=== PATIENT | male | born 1950 | race Caucasian/White ===

== ENCOUNTER 2018-06-09 15:20 | Emergency (ER) | payer OTHER, SELFPAY ==
[2018-06-09 15:49] VITALS: BP 174/94; PULSE 85; RESP 16; TEMP 36.7; O2SAT 100
--- NOTE | 2018-06-09 16:35 | ED.SKABFB ---
HPI - Skin/Abscess/Foreign Bdy General Chief complaint: Skin/Abscess/Foreign Body Stated complaint: INFECTION ON LEFT INDEX FINGER Time Seen by Provider: 06/09/18 16:26 Source: patient Mode of arrival: ambulatory Limitations: no limitations History of Present Illness HPI narrative: Patient is a 68-year-old male sent over from the clinic overall [address] [place] [address] for evaluation of osteomyelitis of his left index finger. Patient states that sometime between 3 and 4 weeks ago he sustained an injury where a piece of wood went up under his fingernail of his left index finger. He states that that has since come out. Since then he has had issues with this finger. [place] been on 10 days of Keflex and 10 days of Augmentin. He states that at some point in the past 10 days he did have purulent material expressed from under his fingernail. Patient states that he went back to his primary doctor within the past 24 hr and had an x-ray which showed osteomyelitis of his fingers so he was sent to the emergency department for further evaluation. He states he has been soaking his finger. States that he is one-day into a new course of 10 days of Keflex. Provided by his primary doctor Related Data Home Medications Medication Instructions Recorded Confirmed cephalexin 750 mg PO BID 06/09/18 06/09/18 lisinopril 10 mg PO DAILY 06/09/18 06/09/18 lovastatin 40 mg PO QPM 06/09/18 06/09/18 metformin 1,000 mg PO BID 06/09/18 06/09/18 Previous Rx's Medication Instructions Recorded sulfamethoxazole-trimethoprim 1 tab PO BID 10 Days #20 tab 06/09/18 Allergies Allergy/AdvReac Type Severity Reaction Status Date / Time No Known Drug Allergies Allergy Verified 06/09/18 15:56 Review of Systems Constitutional Denies fatigue, Denies fever(s) and Denies lethargy Cardiovascular Denies chest pain, Denies palpitations and Denies dyspnea Respiratory Denies dyspnea Musculoskeletal Comments: Left index finger pain and swelling and possible infection Integumentary/Breasts Comments: Swelling to the left distal index finger with white areas Neurologic Comments: Decreased sensation over the left index finger Endocrine Denies fatigue and Denies palpitations COUNTS INCLUDE 234 BEDS AT THE [facility] Medical History High cholesterol (Acute) Hypertension (Acute) Social History Smoking Status: Former smoker Comment: Reviewed patient's past medical history surgical history social history and family history Exam Initial Vital Signs Initial Vital Signs: Vital Signs Temperature 98.1 F 06/09/18 15:49 Pulse Rate 85 06/09/18 15:49 Respiratory Rate 16 06/09/18 15:49 Blood Pressure 174/94 H 06/09/18 15:49 Pulse Oximetry 100 06/09/18 15:49 Const General: cooperative, healthy appearing, comfortable, well developed, well groomed and No acute distress Orientation: alert, awake and oriented x3 HENMT Head: normal to inspection and normocephalic Cardio Pulses: radial pulses present on the left Skin Other: Patient with change in skin color from the PIP joint distal of the left index finger. Has some redness over this area however much of the area is white and swollen. No active drainage. He does have an area on the pad of his index finger towards the distal end of his finger consistent with a cold abscess that has been drained Neuro Other: Patient was somewhat decreased sensation to light touch over the left index finger however does express some pain with this area is palpated. Extrem Other: Patient with swelling of the index finger from the PIP joint distal. Has minimal changes to the finger from the PIP joint proximal. Does have circumferential swelling from the PIP distal. Has limited flexion and extension secondary to the swelling and pain. Course Orders Ordered: ED Orders 06/09/18 16:34 Basic Metabolic Panel Stat Blood Culture Stat C-Reactive Protein Quant Stat Complete Blood Count AUTO DIFF Stat Erythrocyte Sedimentation Rate Stat Lactate (Lactic Acid) Stat Vital Signs - 8 hr 06/09/18 15:49 Temperature 98.1 F Pulse Rate 85 Respiratory Rate 16 Blood Pressure 174/94 H Pulse Oximetry 100 MDM - Skin/Abscess/Foreign Bdy Lab Data Attestation: I reviewed the patient's lab results. Result diagrams: 06/09/18 16:45 06/09/18 16:45 Lab Results 06/09/18 06/09/18 06/09/18 Range/Units 16:45 16:45 16:45 WBC 4.1 L (4.5-11.0) X10^3/uL RBC 3.86 L (4.5-5.9) X10^6/uL Hgb 11.9 L (13.5-17.5) g/dL Hct 34.4 L (41-53) % MCV 89.2 (80-100) fL MCH 30.9 (26-34) PG MCHC 34.7 (30-36) % RDW 14.7 (11.6-14.8) % Plt Count 207 (150-400) X10^3/uL Neut % (Auto) 62.9 (50-75) % Lymph % (Auto) 21.2 L (25-40) % Finney % (Auto) 11.6 (3-14) % Eos % (Auto) 3.3 (2-4) % Baso % (Auto) 1.0 (0-2) % Neut # (Auto) 2600 L (5066-3752) /uL ESR 35 H (0-15) MM/HR Sodium 137 (137-145) mmol/L Potassium 4.0 (3.4-5.1) mmol/L Chloride 100 (98-107) mmol/L Carbon Dioxide 27 (22-32) mmol/L BUN 20 (9-20) mg/dL Creatinine 0.70 (0.66-1.25) mg/dL Estimated GFR > 60.0 (>60) mL/min BUN/Creatinine Ratio 28.6 H (6-22) Glucose 375 H (80-110) mg/dL Lactate 0.9 (0.7-2.1) mmol/L Calcium 9.8 (8.4-10.2) mg/dL C-Reactive Protein < 0.5 (<1.0) mg/dL Imaging Data Finger x-ray: Radiologist's impression: PROCEDURE: XR FINGER LT MIN 2V INDICATIONS: Left index finger osteomyelitis TECHNIQUE: AP hand, 2 views of the index finger(s) acquired. COMPARISON: None. FINDINGS: Bones: No fractures or dislocations. The distal phalanx of the index finger shows diminished bone density of the medial aspect of the proximal shaft with marked thinning of the overlying cortex.. Soft tissues: No suspicious soft tissue calcifications. IMPRESSION: Osteomyelitis distal phalanx of the second ray Dictated by: Gerson Zazueta M.D. on 06/09/2018 at 16:57 Approved by: Gerson Zazueta M.D. on 06/09/2018 at 16:59 MDM Narrative Medical decision making narrative: Patient's only inflammatory marker that is elevated as the ESR. He is nontoxic appearing. X-ray is read as osteomyelitis. I did discuss the case with Dr. Higginbotham with Orthopedics who did not evaluate the patient in the emergency department but did evaluate the x-ray and stated that he did not agree with the diagnosis of osteomyelitis. He recommended placing the patient on another antibiotic and having follow up with his primary doctor and the primary doctor felt that he needed a specialist referral they could place a consult in to see a hand surgeon. I agree that this does not sound unreasonable given the patient's clinical presentation. Patient has been on Keflex and Augmentin. Considered multiple antibiotic choices to include Levaquin to cover Pseudomonas or Bactrim to cover MRSA. The area on his distal finger does look like that there was a potential prior Phalen that has drained which does correspond with the fact that the patient did have a drainage or purulent material several days ago. Will place the patient on Bactrim. He was given return precautions and follow-up instructions. He expressed understanding and agreement with plan. Discharge Plan Departure Patient Disposition: Home, Self-Care Clinical Impression: Finger infection Discharge Date/Time: 06/09/18 19:05 Interventions: ED Discharge Assessment Last Done: 06/09/18 19:05 Instructions: DI for Cellulitis -- Adult Activity Restrictions/Additional Instructions: Recommend that you start the antibiotics that you were given today in the emergency department and stop All other antibiotics. I discussed the case with the orthopedic surgeon today who did not think that you have osteomyelitis which is an infection of your bone. He recommended changing your antibiotics and have you follow-up with your primary care doctor. If your symptoms worsen over the weekend you can return to the emergency department. If not contact her primary doctor on Tuesday to discuss the indications for a referral to see Hand surgery. Prescriptions: New sulfamethoxazole-trimethoprim 800-160 mg tablet 1 tab PO BID 10 Days Qty: 20 RF: 0 No Action lovastatin 40 mg Tablet 40 mg PO QPM RF: 0 lisinopril 10 mg Tablet 10 mg PO DAILY RF: 0 cephalexin 750 mg Capsule 750 mg PO BID RF: 0 metformin 500 mg Tablet Extended Release 24 Hr 1,000 mg PO BID RF: 0
--- NOTE | 2018-06-09 16:43 | DI.RAD.S_ITS ---
PROCEDURE: XR FINGER LT MIN 2V INDICATIONS: Left index finger osteomyelitis TECHNIQUE: AP hand, 2 views of the index finger(s) acquired. COMPARISON: None. FINDINGS: Bones: No fractures or dislocations. The distal phalanx of the index finger shows diminished bone density of the medial aspect of the proximal shaft with marked thinning of the overlying cortex.. Soft tissues: No suspicious soft tissue calcifications. IMPRESSION: Osteomyelitis distal phalanx of the second ray Dictated by: Gerson Zazueta M.D. on 06/09/2018 at 16:57 Approved by: Gerson Zazueta M.D. on 06/09/2018 at 16:59
[2018-06-09 16:56] LABS: Add Manual Diff / Slide Review NO; Eosinophils Percent Auto 3.3 % (2-4); Hematocrit 34.4 % (41-53); Hemoglobin 11.9 g/dL (13.5-17.5); Lymphocytes Percent Auto 21.2 % (25-40); Mean Corpuscular HGB Conc 34.7 % (30-36); Mean Corpuscular Hemoglobin 30.9 PG (26-34); Mean Corpuscular Volume 89.2 fL (80-100); Monocytes Percent Auto 11.6 % (3-14); Neutrophils Absolute Auto 2600 /uL (3000-5900); Neutrophils Percent Auto 62.9 % (50-75); Platelet Count 207 X10^3/uL (150-400); Red Blood Cell Count 3.86 X10^6/uL (4.5-5.9); Red Cell Distribution Width 14.7 % (11.6-14.8); White Blood Cell Count 4.1 X10^3/uL (4.5-11.0)
[2018-06-09 17:14] LABS: Lactate (Lactic Acid) 0.9 mmol/L (0.7-2.1)
[2018-06-09 17:16] LABS: BUN Creatinine Ratio 28.6 (6-22); Blood Urea Nitrogen 20 mg/dL (9-20); Calcium 9.8 mg/dL (8.4-10.2); Carbon Dioxide 27 mmol/L (22-32); Chloride 100 mmol/L (98-107); Estimated Glomerular Filt Rate > 60.0 mL/min (>60); Glucose 375 mg/dL (80-110); HEMOLYSIS < 15 (0-50); Sodium 137 mmol/L (137-145)
[2018-06-09 17:17] LABS: C-Reactive Protein Quant < 0.5 mg/dL (<1.0)
[2018-06-09 17:37] LABS: Erythrocyte Sedimentation Rate 35 MM/HR (0-15)
== END 2018-06-09 19:05 | disposition home or self-care (01) ==
PROVIDERS: Emergency Provider Emergency Medicine; Family Provider Family Medicine; PCP Family Medicine
DX: S60.451A Superficial foreign body of left index finger, initial encounter (principal); L08.9 Local infection of the skin and subcutaneous tissue, unspecified; W45.8XXA Other foreign body or object entering through skin, initial encounter
CPT/HCPCS: 36415; 36591; 73140; 80048; 83605; 85025; 85651; 86140; 87040; 99282; 99284

== ENCOUNTER → 2023-02-23 15:52 | Outpatient (CLI) | payer MEDICARE, SELFPAY ==
--- NOTE | 2023-02-23 15:55 | DI.MRI.S_ITS ---
PROCEDURE: MR PELVIS WO CON INDICATIONS: Pain s/p fall. xray imaging 01/24/23 TECHNIQUE: Noncontrast coronal, sagittal, and axial T1 spin echo and STIR through the bony pelvis. COMPARISON: [facility] ([place]), CR, XR HIP W PEL IF DONE LT 2V, 01/24/2023, 15:56. FINDINGS: Image quality: Images are mildly degraded by patient motion on multiple pulse sequences. Diagnostic information is obtained. Bones: Bone marrow of the pelvic ring, sacrum, and proximal femurs show normal signal throughout. No intraosseous lesions or fractures identified. Degenerative changes are seen in the pubic symphysis, sacroiliac joints, and included lumbar spine. [id number] degenerative changes in the bilateral hips. Tendons: Mild distal gluteus medius and minimus tendinosis. The nearby proximal iliotibial band also appears intact. The iliopsoas tendon appears intact, without adjacent bursal fluid collections or evidence for impingement syndrome. The origin of the hamstring tendon is intact at the ischial tuberosity, as well as the associated sacrotuberous ligament. The straight and reflected heads of the rectus femoris muscle origin appear intact, as well as the conjoint tendon. Soft tissues: There is mild edema adjacent to the pubic symphysis at the adductor longus origins and possibly the obturator internus muscles that is suspicious for muscle strain or low-grade partial tearing. Visualized muscles otherwise demonstrate normal bulk and internal signal. No joint effusions. No free pelvic fluid. Bladder wall thickness is normal. Genitourinary structures and bowel loops appear normal where visualized. Left-sided hydrocele or prominent epididymal cyst. IMPRESSION: 1. No acute osseous contusion or fracture. 2. Mild edema at the origins of the bilateral adductor longus muscles adjacent to the pubic symphysis may indicate low-grade muscle strains. 3. Mild distal gluteus medius and minimus tendinosis. 4. Degenerative changes in the hips, pubic symphysis, sacroiliac joints, and included lumbar spine Approved by: Jose Esteves M.D. on 02/24/2023 at 9:47
--- NOTE | 2023-02-23 15:55 | DI.MRI.S_ITS ---
P a ROCEDURE: MR LUMBAR SPINE WO CON INDICATIONS: Pain s/p fall. xray imaging 01/24/23 TECHNIQUE: Noncontrast sagittal T1 spin echo and T2 fast echo, sagittal STIR, and T2 fast spin echo through the lumbar spine. In cases with scoliosis, additional coronal T2 fast spin echo may be performed. COMPARISON: [facility] ([place]), CR, XR LUMBAR SPINE 2-3V, 01/24/2023, 15:22. FINDINGS: Image quality: Excellent. Alignment and Curvature: Bilateral L5 pars defects with trace anterolisthesis of L5 on S1. Trace degenerative anterolisthesis of L4 on L5. Bone Marrow: Marrow is of normal overall signal. No acute vertebral body compression fractures. Spinal Cord: Conus medullaris terminates at the T12-L1 level. Visualized cord demonstrates normal signal and size. Paraspinous Soft Tissues: No paravertebral masses. T12-L1: Normal appearance. L1-L2: Disc bulge. No canal stenosis or foraminal stenosis. L2-L3: Disc bulge. Mild facet hypertrophy. Mild canal stenosis. Mild right foraminal stenosis. L3-L4: Disc bulge. Facet hypertrophy. Mild canal stenosis. Mild right foraminal stenosis. L4-L5: Anterolisthesis of L4 on L5. Disc bulge. Mild canal stenosis. Left foraminal disc bulge. Severe left foraminal narrowing with left foraminal L4 nerve root impingement. L5-S1: Bilateral L5 pars defects. Trace anterolisthesis of L5 on S1. Posterior disc bulge. No canal stenosis. Mild bilateral foraminal stenosis. IMPRESSION: 1. There are bilateral L5 pars defects. There is trace anterolisthesis of L5 on S1. 2. Multilevel facet arthropathy. 3. Mild canal stenosis at L2-L3, L3-L4, and L4-L5. 4. Severe left foraminal narrowing at L4-L5 with left foraminal L4 nerve root impingement. Dictated by: Lukas Becker M.D. on 02/24/2023 at 8:55 Approved by: Lukas Becker M.D. on 02/24/2023 at 9:00
== END ==
PROVIDERS: Family Provider Family Medicine; PCP Physician Assistant; Referring Provider Physician Assistant; Visit Provider Physician Assistant
DX: M47.816 Spondylosis without myelopathy or radiculopathy, lumbar region (principal); M48.061 Spinal stenosis, lumbar region without neurogenic claudication; M25.552 Pain in left hip; M54.50 Low back pain, unspecified
CPT/HCPCS: 72148; 72195

== ENCOUNTER → 2023-02-24 11:22 | Outpatient (CLI) | payer MEDICARE, SELFPAY ==
[2023-02-24 20:27] LABS: Add Manual Diff / Slide Review NO; Basophils Absolute Auto 0 /uL (0-100); Basophils Percent Auto 0.5 % (0-2); Eosinophils Absolute Auto 200 /uL (0-450); Eosinophils Percent Auto 2.8 % (2-4); Hematocrit 34.2 % (41-53); Hemoglobin 11.7 g/dL (13.5-17.5); Lymphocytes Absolute Auto 900 /uL (1100-4500); Lymphocytes Percent Auto 13.6 % (25-40); Mean Corpuscular HGB Conc 34.2 % (30-36); Mean Corpuscular Hemoglobin 30.2 PG (26-34); Mean Corpuscular Volume 88.3 fL (80-100); Monocytes Absolute Auto 600 /uL (0-900); Monocytes Percent Auto 9.7 % (3-14); Neutrophils Absolute Auto 4900 /uL (1500-7000); Neutrophils Percent Auto 73.4 % (50-75); Platelet Count 306 X10^3/uL (150-400); Red Blood Cell Count 3.88 X10^6/uL (4.5-5.9); Red Cell Distribution Width 12.6 % (11.6-14.8); White Blood Cell Count 6.6 X10^3/uL (4.5-11.0)
[2023-02-24 20:47] LABS: Alanine Aminotransferase 15 IU/L (<50); Albumin Globulin Ratio 1.3 (1.0-2.8); Alkaline Phosphatase 76 U/L (38-126); Aspartate Aminotransferase 21 IU/L (17-59); BUN Creatinine Ratio 22.7 (6-22); Bilirubin Total 0.4 mg/dL (0.2-1.3); Blood Urea Nitrogen 27 mg/dL (9-20); Calcium 9.6 mg/dL (8.4-10.2); Carbon Dioxide 29 mmol/L (22-32); Chloride 99 mmol/L (98-107); Estimated Glomerular Filt Rate > 60 mL/min (>60); Glucose 239 mg/dL (80-110); HEMOLYSIS < 15 (0-50); Potassium 4.8 mmol/L (3.4-5.1); Sodium 135 mmol/L (137-145)
[2023-02-24 20:48] LABS: Cholesterol 254 mg/dL (140-199); HDL Cholesterol 52 mg/dL (40-60); LDL Cholesterol Calculated 135 mg/dL (<100); Triglycerides 336 mg/dL (35-150)
[2023-02-24 20:49] LABS: HEMOLYSIS < 15 (0-50); Iron 100 ug/dL (49-181)
[2023-02-24 21:00] LABS: Percent Iron Saturation 32 % (20-50); Total Iron Binding Capacity 315 ug/dL (261-462); Transferrin 238 mg/dL (206-381)
[2023-02-24 21:15] LABS: Vitamin D 25 Hydroxy (D3) < 12.8 ng/mL (30.0-100.0)
[2023-02-24 21:22] LABS: Ferritin 113 ng/mL (18-464)
[2023-02-24 21:24] LABS: TSH w/ Reflex to FT4 2.28 uIU/mL (0.47-4.68)
[2023-02-24 21:36] LABS: Vitamin B12 737 pg/mL (239-931)
[2023-02-25 21:36] LABS: x Labcorp Estim. Avg Glu (eAG) 232 mg/dL (.); x Labcorp Hemoglobin A1c 9.7 % (4.8-5.6)
== END ==
PROVIDERS: Family Provider Family Medicine; PCP Physician Assistant; Visit Provider Physician Assistant
DX: Z86.2 Personal history of diseases of the blood and blood-forming organs and certain disorders involving the immune mechanism (principal); R41.3 Other amnesia; D64.9 Anemia, unspecified; E11.65 Type 2 diabetes mellitus with hyperglycemia; E78.00 Pure hypercholesterolemia, unspecified
CPT/HCPCS: 80053; 80061; 82306; 82607; 82728; 83036; 83540; 83550; 84443; 85025

== ENCOUNTER → 2023-03-14 14:47 | Outpatient (CLI) | payer MEDICARE, SELFPAY | PROVIDERS: Family Provider Family Medicine; PCP Physician Assistant; Referring Provider Physician Assistant; Visit Provider Physician Assistant | DX: R55 Syncope and collapse (principal) | CPT/HCPCS: 93246 ==

== ENCOUNTER → 2024-08-31 09:20 | Outpatient (CLI) | payer MEDICARE, SELFPAY ==
[2024-08-31 21:51] LABS: Add Manual Diff / Slide Review NO; Basophils Absolute Auto 0 /uL (0-100); Basophils Percent Auto 0.6 % (0-2); Eosinophils Absolute Auto 100 /uL (0-450); Eosinophils Percent Auto 1.9 % (2-4); Hematocrit 28.3 % (41-53); Hemoglobin 9.6 g/dL (13.5-17.5); Lymphocytes Absolute Auto 600 /uL (1100-4500); Lymphocytes Percent Auto 10.8 % (25-40); Mean Corpuscular HGB Conc 33.8 % (30-36); Mean Corpuscular Hemoglobin 30.8 PG (26-34); Mean Corpuscular Volume 91.1 fL (80-100); Monocytes Absolute Auto 600 /uL (0-900); Monocytes Percent Auto 10.3 % (3-14); Neutrophils Absolute Auto 4300 /uL (1500-7000); Neutrophils Percent Auto 76.4 % (50-75); Platelet Count 260 X10^3/uL (150-400); Red Blood Cell Count 3.11 X10^6/uL (4.5-5.9); Red Cell Distribution Width 13.2 % (11.6-14.8); White Blood Cell Count 5.7 X10^3/uL (4.5-11.0)
[2024-08-31 21:53] LABS: Alanine Aminotransferase 13 IU/L (<50); Albumin 4.1 g/dL (3.5-5.0); Albumin Globulin Ratio 1.6 (1.0-2.8); Alkaline Phosphatase 93 U/L (38-126); Aspartate Aminotransferase 27 IU/L (17-59); BUN Creatinine Ratio 26.3 (6-22); Bilirubin Total 0.4 mg/dL (0.2-1.3); Blood Urea Nitrogen 30 mg/dL (9-20); Calcium 9.4 mg/dL (8.4-10.2); Carbon Dioxide 23 mmol/L (22-32); Chloride 107 mmol/L (98-107); Cholesterol 158 mg/dL (140-199); Estimated Glomerular Filt Rate > 60 mL/min (>60); Globulin 2.5 g/dL (1.7-4.1); Glucose 140 mg/dL (80-110); HDL Cholesterol 62 mg/dL (40-60); HEMOLYSIS < 15 (0-50); Hemoglobin A1C% w Est Avg Glu 6.9 % (4.0-6.0); LDL Cholesterol Calculated 80 mg/dL (<100); Potassium 4.7 mmol/L (3.4-5.1); Sodium 139 mmol/L (137-145); Total Protein 6.6 g/dL (6.3-8.2); Triglycerides 82 mg/dL (35-150)
[2024-08-31 22:16] LABS: Creatinine Urine Random 86.22 mg/dL
[2024-08-31 22:49] LABS: Microalbumin Urine Random 55.6 mg/dL (0-1.6)
== END ==
PROVIDERS: Family Provider Family Medicine; PCP Physician Assistant; Visit Provider Physician Assistant
DX: I10 Essential (primary) hypertension (principal); D64.89 Other specified anemias; E11.65 Type 2 diabetes mellitus with hyperglycemia; E78.00 Pure hypercholesterolemia, unspecified; Z79.899 Other long term (current) drug therapy
CPT/HCPCS: 80053; 80061; 82043; 82570; 83036; 85025

== ENCOUNTER → 2024-09-27 11:45 | Outpatient (CLI) | payer MEDICARE, SELFPAY ==
[2024-10-01 06:41] LABS: Fecal Immunochemical Test Negative (Negative)
== END ==
PROVIDERS: Family Provider Family Medicine; PCP Physician Assistant; Visit Provider Physician Assistant
DX: Z12.11 Encounter for screening for malignant neoplasm of colon (principal); D64.89 Other specified anemias
CPT/HCPCS: 82274

== ENCOUNTER → 2024-10-01 13:01 | Outpatient (CLI) | payer MEDICARE, SELFPAY ==
[2024-10-01 19:23] LABS: Add Manual Diff / Slide Review NO; Basophils Absolute Auto 0 /uL (0-100); Basophils Percent Auto 0.8 % (0-2); Eosinophils Absolute Auto 100 /uL (0-450); Eosinophils Percent Auto 1.5 % (2-4); Hematocrit 35.3 % (41-53); Lymphocytes Absolute Auto 600 /uL (1100-4500); Lymphocytes Percent Auto 12.1 % (25-40); Mean Corpuscular HGB Conc 33.9 % (30-36); Mean Corpuscular Hemoglobin 31.2 PG (26-34); Mean Corpuscular Volume 92.1 fL (80-100); Monocytes Absolute Auto 600 /uL (0-900); Monocytes Percent Auto 12.8 % (3-14); Neutrophils Absolute Auto 3600 /uL (1500-7000); Neutrophils Percent Auto 72.8 % (50-75); Platelet Count 298 X10^3/uL (150-400); Red Blood Cell Count 3.84 X10^6/uL (4.5-5.9); Red Cell Distribution Width 13.6 % (11.6-14.8)
[2024-10-01 19:29] LABS: Appearance Urine UA CLEAR; Bilirubin Urine UA NEGATIVE (NEGATIVE); Color Urine UA YELLOW; Glucose Urine UA 3+ g/dL (Negative); Ketones Urine UA TRACE (NEGATIVE); Leukocyte Esterase Urine UA NEGATIVE (NEGATIVE); Nitrite Urine UA NEGATIVE (Negative); Occult Blood Urine UA NEGATIVE (Negative); Protein Urine UA 2+ (Negative); Specific Gravity Urine UA 1.025 (1.000-1.035); Urobilinogen Urine UA 0.2 E.U./dL (0.2)
[2024-10-01 19:36] LABS: Bacteria Urine Occasional (0-1); Culture Indicated Urine Cult Not Indicated; RBC Urine None Seen (0-5/HPF); Squamous Epithelial Cell Urine 0-1 /HPF (0-5/HPF); Urine Volume 10mL (spun); WBC Urine 0-1/HPF (0-5/HPF)
[2024-10-01 19:38] LABS: Iron 84 ug/dL (49-181)
[2024-10-01 19:50] LABS: Vitamin D 25 Hydroxy (D3) 37.5 ng/mL (30.0-100.0)
[2024-10-01 19:57] LABS: Creatinine Urine Random 96.19 mg/dL
[2024-10-01 20:04] LABS: Prostate Specific Antigen Scrn 1.52 ng/mL (0.1-4.0)
[2024-10-01 20:09] LABS: Ferritin 29 ng/mL (18-464)
[2024-10-01 20:17] LABS: Microalbumin Urine Random 57.8 mg/dL (0-1.6)
[2024-10-01 20:26] LABS: Hep C Virus Ab w/Reflex Quant NEGATIVE s/c (NEGATIVE); Vitamin B12 425 pg/mL (239-931)
== END ==
PROVIDERS: Family Provider Family Medicine; PCP Physician Assistant; Visit Provider Physician Assistant
DX: Z12.5 Encounter for screening for malignant neoplasm of prostate (principal); E55.9 Vitamin D deficiency, unspecified; N28.9 Disorder of kidney and ureter, unspecified; Z11.59 Encounter for screening for other viral diseases; D64.9 Anemia, unspecified; E11.40 Type 2 diabetes mellitus with diabetic neuropathy, unspecified; E11.65 Type 2 diabetes mellitus with hyperglycemia; I10 Essential (primary) hypertension
CPT/HCPCS: 81001; 82043; 82306; 82570; 82607; 82728; 83540; 85025; 86803; G0103